=== PATIENT | female | born 1930 | race Caucasian/White ===

== ENCOUNTER 2019-12-05 20:06 | Emergency (ER) | payer MEDICARE, OTHER ==
[~2019-12-05] VITALS: Ht 162.6 cm; Wt 77.0 kg
[2019-12-05 20:36] LABS: BASO # 0.1 x10^3/uL (0.0-0.2); BASO % 1 % (0-3); EOS # 0.1 x10^3/uL (0.0-0.7); EOS % 1 % (0-3); HEMATOCRIT 39.3 % (36.0-47.0); HEMOGLOBIN 13.1 g/dL (12.0-15.5); LYMPH # 3.4 x10^3/uL (1.0-4.8); LYMPH % 34 % (24-48); MEAN CORPUSCULAR HEMOGLOBIN 30 pg (25-35); MEAN CORPUSCULAR HGB CONC 33 g/dL (31-37); MEAN CORPUSCULAR VOLUME 91 fL (79-100); MONO # 0.9 x10^3/uL (0.0-1.1); MONO % 9 % (0-9); NEUT # 5.5 x10^3uL (1.8-7.7); NEUT % 55 % (31-73); PLATELET COUNT 378 x10^3/uL (140-400); RED BLOOD COUNT 4.34 x10^6/uL (3.50-5.40); RED CELL DISTRIBUTION WIDTH 16.2 % (11.5-14.5); WHITE BLOOD COUNT 10.1 x10^3/uL (4.0-11.0)
[2019-12-05 20:45] LABS: CALCIUM 8.9 mg/dL (8.5-10.1); GFR 52.2; POTASSIUM 4.1 mmol/L (3.5-5.1)
[2019-12-05 20:51] LABS: ALBUMIN 3.1 g/dL (3.4-5.0); ALBUMIN/GLOBULIN RATIO 0.8 (1.0-1.7); TOTAL BILIRUBIN 0.2 mg/dL (0.2-1.0); TOTAL PROTEIN 7.1 g/dL (6.4-8.2)
--- NOTE | 2019-12-05 20:57 | RAD ---
INDICATION: Reason: fall / Spl. Instructions: / History: COMPARISON: None. TECHNIQUE: Axial CT images obtained through the head. One or more of the following individualized dose reduction techniques were utilized for this examination: 1. Automated exposure control; 2. Adjustment of the mA and/or kV according to patient size; 3. Use of iterative reconstruction technique. FINDINGS: Prominence of the ventricles and sulci which can be seen with age-related volume loss. Multifocal low density throughout the white matter. Within the right frontal region abutting the falx and inner table of the calvarium there is a high density structure identified measuring 12 x 10 mm. No midline shift. Suprasellar cistern is not effaced. IMPRESSION: * At the right frontal region just deep to the calvarium along the falx there is a high density extra-axial structure seen. Differential considerations include both an extra-axial mass such as meningioma with extra-axial hemorrhage also within the differential for this CT appearance. Would consider obtaining an MRI with and without contrast to further evaluate. * Scattered foci of low density within the white matter. Nonspecific but can be from chronic small vessel ischemic disease. * Prominence of ventricles and sulci which can be seen with age-related volume loss. Electronically signed by: Maxim Sullivan MD (12/05/2019 8:54 PM) [id number]
--- NOTE | 2019-12-05 21:29 | PHYS DOC ---
Past History Past Medical History: Dementia Adult General Chief Complaint Chief Complaint: LACERATION/AVULSION HPI HPI Patient is a 89 year old female who presents to the emergency department for evaluation of fall and head injury. The patient has history of dementia and does not provide any history regarding her injury. The patient was brought to the emergency department from [facility] after patient was found to have fallen. Patient had a noted laceration to the scalp by staff with bleeding controlled prior to arrival. No other obvious injuries or deformities. The patient is not reportedly on any blood thinner medication. Review of Systems Review of Systems Unable to answer any questions regarding review of systems due to dementia. Patient repeatedly cries for help. All other systems were reviewed and found to be within normal limits, except as documented in this note. Allergies Allergies Allergies Coded Allergies Type Severity Reaction Last Updated Verified Macrolide Antibiotics Allergy Unknown 12/05/19 Yes Penicillins Allergy Unknown 12/05/19 Yes aspirin Allergy Unknown 12/05/19 Yes Uncoded Allergies Type Severity Reaction Last Updated Verified ketolides Allergy Unknown 12/05/19 Physical Exam Physical Exam Constitutional: Well developed, well nourished, no acute distress, non-toxic appearance. [] HENT: Normocephalic, atraumatic, bilateral external ears normal, oropharynx moist, no oral exudates, nose normal. [] Eyes: PERRLA, EOMI, conjunctiva normal, no discharge. [] Neck: Normal range of motion, no tenderness, supple, no stridor. [] Cardiovascular:Heart rate regular rhythm, no murmur [] Lungs & Thorax: Bilateral breath sounds clear to auscultation [] Abdomen: Bowel sounds normal, soft, no tenderness, no masses, no pulsatile masses. [] Skin: Warm, dry, no erythema, no rash. [] Back: No tenderness, no CVA tenderness. [] Extremities: No tenderness, no cyanosis, no clubbing, ROM intact, no edema. [] Neurologic: Alert and oriented X 3, normal motor function, normal sensory function, no focal deficits noted. [] Psychologic: Affect normal, judgement normal, mood normal. [] Current Patient Data Lab Results Laboratory Tests Test 12/05/19 20:10 White Blood Count 10.1 x10^3/uL (4.0-11.0) Red Blood Count 4.34 x10^6/uL (3.50-5.40) Hemoglobin 13.1 g/dL (12.0-15.5) Hematocrit 39.3 % (36.0-47.0) Mean Corpuscular Volume 91 fL (79-100) Mean Corpuscular Hemoglobin 30 pg (25-35) Mean Corpuscular Hemoglobin Concent 33 g/dL (31-37) Red Cell Distribution Width 16.2 % (11.5-14.5) H Platelet Count 378 x10^3/uL (140-400) Neutrophils (%) (Auto) 55 % (31-73) Lymphocytes (%) (Auto) 34 % (24-48) Monocytes (%) (Auto) 9 % (0-9) Eosinophils (%) (Auto) 1 % (0-3) Basophils (%) (Auto) 1 % (0-3) Neutrophils # (Auto) 5.5 x10^3uL (1.8-7.7) Lymphocytes # (Auto) 3.4 x10^3/uL (1.0-4.8) Monocytes # (Auto) 0.9 x10^3/uL (0.0-1.1) Eosinophils # (Auto) 0.1 x10^3/uL (0.0-0.7) Basophils # (Auto) 0.1 x10^3/uL (0.0-0.2) Prothrombin Time 10.9 SEC (9.4-11.4) Prothrombin Time INR 1.1 (0.9-1.1) Sodium Level 138 mmol/L (136-145) Potassium Level 4.1 mmol/L (3.5-5.1) Chloride Level 101 mmol/L (98-107) Carbon Dioxide Level 27 mmol/L (21-32) Anion Gap 10 (6-14) Blood Urea Nitrogen 32 mg/dL (7-20) H Creatinine 1.0 mg/dL (0.6-1.0) Estimated GFR (Cockcroft-Gault) 52.2 BUN/Creatinine Ratio 32 (6-20) H Glucose Level 138 mg/dL (70-99) H Calcium Level 8.9 mg/dL (8.5-10.1) Total Bilirubin 0.2 mg/dL (0.2-1.0) Aspartate Amino Transferase (AST) 23 U/L (15-37) Alanine Aminotransferase (ALT) 24 U/L (14-59) Alkaline Phosphatase 64 U/L (46-116) Troponin I Quantitative 0.026 ng/mL (0-0.055) Total Protein 7.1 g/dL (6.4-8.2) Albumin 3.1 g/dL (3.4-5.0) L Albumin/Globulin Ratio 0.8 (1.0-1.7) L EKG EKG Interpreted by me: Heart rate 72, sinus rhythm, leftward axis, no acute ST elevations or depressions [] Radiology/Procedures Radiology/Procedures [address] [address] IMAGING REPORT Signed PATIENT: HÉCTOR RYAN ACCOUNT: [id number] : 1930 LOCATION: ER AGE: 89 SEX: F EXAM STATUS: PRE ER ORD. PHYSICIAN: LAYA HOOPER MD REASON: fall PROCEDURE: CT HEAD WO CONTRAST INDICATION: Reason: fall / Spl. Instructions: / History: COMPARISON: None. TECHNIQUE: Axial CT images obtained through the head. One or more of the following individualized dose reduction techniques were utilized for this examination: 1. Automated exposure control; 2. Adjustment of the mA and/or kV according to patient size; 3. Use of iterative reconstruction technique. FINDINGS: Prominence of the ventricles and sulci which can be seen with age-related volume loss. Multifocal low density throughout the white matter. Within the right frontal region abutting the falx and inner table of the calvarium there is a high density structure identified measuring 12 x 10 mm. No midline shift. Suprasellar cistern is not effaced. IMPRESSION: * At the right frontal region just deep to the calvarium along the falx there is a high density extra-axial structure seen. Differential considerations include both an extra-axial mass such as meningioma with extra-axial hemorrhage also within the differential for this CT appearance. Would consider obtaining an MRI with and without contrast to further evaluate. * Scattered foci of low density within the white matter. Nonspecific but can be from chronic small vessel ischemic disease. * Prominence of ventricles and sulci which can be seen with age-related volume loss. Electronically signed by: Maxim Fields MD (12/05/2019 8:54 PM) [id number] DICTATED AND SIGNED BY: MAXIM FIELDS MD DATE: 12/05/192053 CC: LAYA HOOPER MD ~ Indication: Scalp laceration Procedure: The patient was placed in the appropriate position. The area was then cleansed with high-pressure saline. The laceration was closed using skin stapl es. The wound area was then left uncovered. Total repaired wound length: 4 cm. Other Items: Total staple count: 7 The patient tolerated the procedure without difficulty. Complications: None.[] Course & Med Decision Making Course & Med Decision Making Pertinent Labs and Imaging studies reviewed. (See chart for details) Laceration was repaired as outlined in procedure note. CT imaging showed a ri ght extra-axial hyperdensity with differential including extra-axial hemorrhage versus meningioma. I consulted neurosurgery at [facility]. After reviewing the images, they stated that though the finding likely represents a meningioma, they do feel it appropriate that patient be transferred to a higher level of care for repeat CT imaging and available neurosurgery c onsult. I contacted the hospitalist, Dr. Rose, at [facility] and spoke with him regarding patient case. He agreed to accept patient for transfer. The patient was transferred to [facility] by ambulance. [] Dragon Disclaimer Dragon Disclaimer This electronic medical record was generated, in whole or in part, using a voice recognition dictation system. Departure Departure: Impression: Primary Impression: Closed head injury Additional Impressions: Abnormal head CT Dementia Scalp laceration Disposition: 02 XFER [facility] HOS[facility] Condition: GUARDED Justification of Admission: Justification of Admission: Justification of Admission Dx: N/A Problem Qualifiers Primary Impression: Closed head injury Encounter type: initial encounter Qualified Codes: S09.90XA - Unspecified injury of head, initial encounter Additional Impressions: Dementia Dementia type: unspecified type Dementia behavioral disturbance: without behavioral disturbance Qualified Codes: F03.90 - Unspecified dementia without behavioral disturbance Scalp laceration Encounter type: initial encounter Qualified Codes: S01.01XA - Laceration without foreign body of scalp, initial encounter LAYA HOOPER MD Dec 05, 2019 21:29
--- NOTE | 2019-12-05 21:47 | EKG ---
[address] [address] Test Date: 2019-12-05 Test Time: 20:19:36 Pat Name: HÉCTOR RYAN Department: Room: Gender: F Line Ordering Clinician: LOVE : 1930 Requested By: LAYA HOOPER Order Number: [id number] Reading MD: Chandana Alvarenga MD Measurements Intervals Ashley Rate: 72 P: 60 OH: 162 QRS: -12 QRSD: 116 T: 16 QT: 372 QTc: 409 Interpretive Statements SINUS RHYTHM Electronically Signed On 12-06-2019 12:32:38 CDT by Chandana Alvarenga MD
[2019-12-06 00:15] VITALS: BP 161/64
== END 2019-12-06 00:41 | disposition short-term general hospital (02) ==
LOC: ER 20:06
DX: S01.01XA Laceration without foreign body of scalp, initial encounter (principal); F03.90 Unspecified dementia, unspecified severity, without behavioral disturbance, psychotic disturbance, mood disturbance, and anxiety; R93.0 Abnormal findings on diagnostic imaging of skull and head, not elsewhere classified; Z88.0 Allergy status to penicillin; Z88.6 Allergy status to analgesic agent; Z88.8 Allergy status to other drugs, medicaments and biological substances; W18.39XA Other fall on same level, initial encounter; Y93.89 Activity, other specified; Y92.89 Other specified places as the place of occurrence of the external cause; Y99.8 Other external cause status
CPT/HCPCS: 12002; 36415; 70450; 80053; 84484; 85025; 85610; 93005; 99285-25

== ENCOUNTER 2020-05-03 12:54 | Inpatient (IN) | payer MEDICARE, OTHER ==
[~2020-05-03] VITALS: Ht 162.6 cm; Wt 68.8 kg
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
--- NOTE | 2020-05-03 13:23 | RAD ---
INDICATION: Reason: ams / Spl. Instructions: / History: COMPARISON: None. FINDINGS: Single view of chest obtained. Severe degenerative changes of the bilateral shoulders with dysmorphic changes of the humeral heads. Degenerative changes of the spine. Enlarged cardiomediastinal silhouette with calcific atherosclerosis. Moderate right-sided pleural effusion with suspected small left-sided pleural effusion with adjacent airspace consolidation. Air-filled prominent stomach bubble IMPRESSION: * Suspected right greater than left pleural effusion with adjacent airspace consolidation which can be seen with atelectasis or infiltrate. * Enlarged cardiomediastinal silhouette. Electronically signed by: Maxim Sullivan MD (05/03/2020 1:21 PM) [id number]
[2020-05-03 13:35] LABS: BASO % 0 % (0-3); EOS % 0 % (0-3); HEMATOCRIT 39.7 % (36.0-47.0); HEMOGLOBIN 12.7 g/dL (12.0-15.5); LYMPH # 1.4 x10^3/uL (1.0-4.8); LYMPH % 24 % (24-48); MEAN CORPUSCULAR HEMOGLOBIN 28 pg (25-35); MEAN CORPUSCULAR HGB CONC 32 g/dL (31-37); MEAN CORPUSCULAR VOLUME 89 fL (79-100); MONO # 0.2 x10^3/uL (0.0-1.1); MONO % 3 % (0-9); NEUT # 4.4 x10^3uL (1.8-7.7); NEUT % 72 % (31-73); PLATELET COUNT 184 x10^3/uL (140-400); RED BLOOD COUNT 4.49 x10^6/uL (3.50-5.40); RED CELL DISTRIBUTION WIDTH 17.8 % (11.5-14.5)
--- NOTE | 2020-05-03 13:51 | EKG ---
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
--- NOTE | 2020-05-03 13:54 | RAD ---
CT HEAD AND C-SPINE WO History: Reason: ams / Spl. Instructions: / History: Comparison: CT head 12/05/2019 Technique: Noncontrast CT of the head and cervical spine. Findings: CT HEAD: There is no evidence for intracranial mass or hemorrhage. There is no hydrocephalus or midline shift. No abnormal extra-axial fluid collections are present. There is redemonstration of a high density 1.2 cm mass along the frontal/falcine dura, most consisten t with meningioma. No adjacent edema or significant mass effect. Delaney/white matter differentiation is preserved. The visualized paranasal sinuses and mastoid air cells are clear. The skull and scalp are within normal limits. CT CERVICAL SPINE: There is no evidence for fracture in the cervical spine. Alignment is normal. Multilevel degenerative disc and facet disease. No destructive osseous lesions are seen. Enlarged right thyroid lobe containing multiple nodules including elongated 1.7 cm hypodense nodule. Large right pleural effusion. Impression: 1. No acute intracranial findings. 2. Redemonstrated 1.2 cm frontal/parasagittal extra-axial mass most consistent with meningioma. 3. Degenerative changes without acute osseous abnormality in the cervical spine. 4. Enlarged right thyroid lobe containing multiple nodules with one measuring at least 1.7 cm. Recom mend routine ultrasound for further evaluation. 5. Large right pleural effusion. ------- Exposure: One or more of the following individualized dose reduction techniques were utilized for thi s examination: 1. Automated exposure control 2. Adjustment of the mA and/or kV according to patient size 3. Use of iterative reconstruction technique. Electronically signed by: Devante Euceda MD (05/03/2020 1:52 PM) [facility]
[2020-05-03 13:58] LABS: MAGNESIUM 2.2 mg/dL (1.8-2.4)
[2020-05-03] MEDS ORDERED: CLINDAMYCIN 600MG PREMIX 50 ML IV ONE (14:00)
--- NOTE | 2020-05-03 14:13 | RAD ---
CT THORAX WO History: Reason: cough, ams / Spl. Instructions: / History: Comparison: X-ray 05/03/2020 Technique: Noncontrast CT of the chest. Findings: Assessment is limited by lack of IV contrast. Aorta and Great Vessels: No aneurysm of the aortic arch or thoracic aorta is seen. Heavy atherosclero tic calcification. Thyroid: Enlarged right thyroid lobe with nodules measuring up to 1.7 cm. Mediastinum and dara: No mediastinal masses or adenopathy is seen. Esophagus: The visualized esophagus is normal. Heart: The heart is normal in size. There is no pericardial effusion. Heavy coronary artery calcifica tion. Trachea: No endobronchial masses. Lungs: Mild right upper lobe consolidation/atelectasis, moderate right middle lobe consolidation/atel ectasis in high-grade consolidation/atelectasis of the right lower lobe in the setting of large right pleural effusion. Left lower lobe patchy opacities and mild consolidation.. Calcified granulomas. Pleural Space: Large right pleural effusion, trace left pleural effusion. No pneumothorax. Upper Abdomen: No significant findings. Osseous Structures and Soft Tissues: Severe degenerative changes of the bilateral shoulders with join t effusions. Acute fracture right sixth, seventh and eighth ribs posterior laterally. The seventh rib is also fractured posterior medially. Decreased osseous mineralization in the spine with advanced mu ltilevel degenerative changes. Impression: 1. Acute fractures of the right sixth, seventh and eighth ribs with large right pleural effusion and adjacent atelectasis/consolidation. Superimposed infection cannot be excluded. 2. Trace left pleural effusion and lower lobe airspace disease. 3. Enlarged right thyroid gland with at least 1.7 cm nodule. Recommend routine outpatient ultrasound for further evaluation. ------ Exposure: One or more of the following individualized dose reduction techniques were utilized for thi s examination: 1. Automated exposure control 2. Adjustment of the mA and/or kV according to patient size 3. Use of iterative reconstruction technique. Electronically signed by: Devante Euceda MD (05/03/2020 2:11 PM) [facility]
[2020-05-03 14:24] LABS: CALCIUM 9.4 mg/dL (8.5-10.1); GFR 52.2; POTASSIUM 4.7 mmol/L (3.5-5.1)
[2020-05-03 14:26] LABS: ACETAMIN < 2.0 mcg/mL (10-30); ALBUMIN 2.6 g/dL (3.4-5.0); ALBUMIN/GLOBULIN RATIO 0.6 (1.0-1.7); ETHANOL < 10 mg/dL (0-10); SALIC < 2.8 mg/dL (2.8-20.0); TOTAL BILIRUBIN 0.2 mg/dL (0.2-1.0); TOTAL PROTEIN 6.7 g/dL (6.4-8.2)
[2020-05-03] MEDS ORDERED: cefTRIAXone SODIUM 1 GM VIAL ONE (14:41)
[2020-05-03] MEDS ORDERED: IV NORMAL SALINE 50ML 50 ML ONE (14:41)
[2020-05-03] MEDS ORDERED: IOHEXOL 300 MG/ML 75 ML VIAL. IV ONE (14:45)
--- NOTE | 2020-05-03 15:32 | RAD ---
CT ABDOMEN+PELVIS W History: Reason: fall? / Spl. Instructions: 60 ML OMNI 300 / History: Comparison: CT chest 05/03/2020 Technique: CT of the abdomen and pelvis with intravenous contrast. Findings: Redemonstrated large right pleural effusion adjacent to fractures of the posterior lateral sixth stephen nth and eighth ribs. Consolidation/atelectasis at the right lower lobe. Left basilar consolidation/at electasis. Cardiomegaly and coronary artery calcification. There is no free intra-abdominal air. Trace free fluid in the pelvic cul-de-sac. The liver, gallbladder, biliary ducts, adrenal glands and spleen are unremarkable. Mild pancreatic at rophy. Hypodensity and cortical thinning at the upper pole of the right kidney may represent focal at rophy/scarring. There is an intermediate density round exophytic 1.7 cm mass at the upper pole left k idney (Hounsfield unit 49). Stomach is unremarkable. Normal small bowel. Extensive sigmoid diverticulosis with mild wall thickeni ng and adjacent inflammatory changes. Mild rectal thickening and round density within the rectum may represent a polyp or diverticulum. Status post hysterectomy. Right adnexa 6.3 x 5.4 cm cyst. No abdominal or pelvic adenopathy. Moderate aortoiliac atherosclerotic calcification without aneurysm. Diffuse soft tissue anasarca. Acute comminuted fracture of the right greater trochanter with surround ing edema diffusely decreased osseous mineralization. Advanced multilevel degenerative changes in the spine. Impression: 1. Acute comminuted fracture right greater trochanter. 2. Extensive sigmoid diverticulosis with mild wall thickening and pericolonic fat stranding concerni ng for diverticulitis. 3. Left renal upper pole 1.7 cm intermediate density exophytic mass. This may represent a cyst with proteinaceous or hemorrhagic content. Ultrasound is recommended to exclude solid neoplasm. 4. Right adnexal cyst measuring 6.3 cm. Pelvic ultrasound is recommended for further evaluation. 5. Right rib fractures, large right pleural effusion and atelectasis better appreciated on compariso n CT chest. ------ Exposure: One or more of the following individualized dose reduction techniques were utilized for thi s examination: 1. Automated exposure control 2. Adjustment of the mA and/or kV according to patient size 3. Use of iterative reconstruction technique. Electronically signed by: Devante Euceda MD (05/03/2020 3:30 PM) [facility]
[2020-05-03] MEDS ORDERED: FUROSEMIDE 100 MG/10 ML VIAL IVP ONE (15:45)
--- NOTE | 2020-05-03 17:01 | RAD ---
Bilateral lower extremity venous duplex Doppler ultrasound HISTORY: Bilateral leg swelling and edema, history of DVT. FINDINGS: No DVT evident by grayscale sonography with compressibility, patent color Doppler blood adwoa w and augmentation of blood flow of the bilateral common femoral veins, profunda femoral veins and encinas perficial femoral veins and of the right popliteal vein. No DVT evident with patent color Doppler blo od flow the bilateral posterior tibial and peroneal veins in the calves. Due to patient being unable to move the left leg the left popliteal fossa could not be accessed which does not allow evaluation o f the left popliteal vein for thrombosis. A ovoid mixed echogenicity focus measuring 4.1 x 1.2 x 3.2 cm at the visualized left popliteal fossa is documented which is indeterminate. IMPRESSION: Negative legs for DVT. The left popliteal fossa and popliteal vein cannot be evaluated not allowing a ssessment for DVT at this segment. See above. Electronically signed by: Chicho Yanes MD (05/03/2020 4:58 PM) [facility]
[2020-05-03] MEDS ORDERED: HYDROmorphone PF 1 MG/ML DISP.SYRIN IVP ONE (17:30)
[2020-05-03 18:41] LABS: BACTERIA,URINE MOD /HPF (0-FEW); BILIRUBIN,URINE NEG (NEG); CLARITY,URINE CLOUDY; COLOR,URINE YELLOW; GLUCOSE,URINE NEG (NEG); NITRITE,URINE POS (NEG); SQUAMOUS EPITHELIAL CELL,UR FEW /LPF; UROBILINOGEN,URINE 0.2 mg/dL (0.2 mg/dL); WBC,URINE 20-40 /HPF (0-4)
[2020-05-03 18:47] LABS: AMPHETAMINE/METHAMPHETAMINE NEG (NEG); BARBITURATES NEG (NEG); BENZODIAZEPINES NEG (NEG); CANNABINOIDS NEG (NEG); COCAINE NEG (NEG); METHADONE NEG (NEG); OPIATES NEG (NEG); PHENCYCLIDINE NEG (NEG)
[2020-05-03 19:48] VITALS: BP 159/74
[2020-05-03 20:00] VITALS: BP 139/64
[2020-05-03 22:00] VITALS: BP 120/51
[2020-05-03] MEDS ORDERED: ALBU2.5V8 IH (23:12)
[2020-05-03] MEDS ORDERED: DOCU100T5 PO (23:12)
[2020-05-03] MEDS ORDERED: [UNRECOGNIZED DRUG - CODE] PO (23:12)
[2020-05-03] MEDS ORDERED: MULT-445 PO (23:12)
[2020-05-03] MEDS ORDERED: ONDA4TAB7 PO (23:12)
[2020-05-03] MEDS ORDERED: PHEN26CR2 RC (23:12)
[2020-05-03] MEDS ORDERED: MAGN400O7 PO (23:12)
[2020-05-03] MEDS ORDERED: LISI20TA18 PO (23:12)
[2020-05-03] MEDS ORDERED: MELA5TAB20 PO (23:12)
[2020-05-03] MEDS ORDERED: ACET-1874 PO (23:12)
[2020-05-03] MEDS ORDERED: LACT100C2 PO (23:12)
[2020-05-03] MEDS ORDERED: CHOL500050 PO (23:12)
[2020-05-03] MEDS ORDERED: CALC11776 PO (23:12)
[2020-05-04] VITALS (17 sets, daily range): BP systolic 77–123; BP diastolic 35–75
[2020-05-04] MEDS ORDERED: ONDANSETRON PF 4 MG/2 ML VIAL. IVP PRN (01:15)
[2020-05-04 07:07] LABS: BASO % 1 % (0-3); EOS % 1 % (0-3); HEMATOCRIT 37.2 % (36.0-47.0); HEMOGLOBIN 12.1 g/dL (12.0-15.5); LYMPH # 1.2 x10^3/uL (1.0-4.8); LYMPH % 21 % (24-48); MEAN CORPUSCULAR HEMOGLOBIN 29 pg (25-35); MEAN CORPUSCULAR HGB CONC 32 g/dL (31-37); MEAN CORPUSCULAR VOLUME 88 fL (79-100); MONO # 0.3 x10^3/uL (0.0-1.1); MONO % 6 % (0-9); NEUT % 72 % (31-73); PLATELET COUNT 171 x10^3/uL (140-400); RED BLOOD COUNT 4.24 x10^6/uL (3.50-5.40); WHITE BLOOD COUNT 5.6 x10^3/uL (4.0-11.0)
[2020-05-04 07:14] LABS: ALBUMIN 2.4 g/dL (3.4-5.0); ALBUMIN/GLOBULIN RATIO 0.6 (1.0-1.7); CALCIUM 9.2 mg/dL (8.5-10.1); CREATININE 0.9 mg/dL (0.6-1.0); POTASSIUM 4.2 mmol/L (3.5-5.1); TOTAL BILIRUBIN 0.2 mg/dL (0.2-1.0); TOTAL PROTEIN 6.2 g/dL (6.4-8.2)
[2020-05-04] MEDS ORDERED: MAGNESIUM HYDROXIDE 2,400 MG/30 ML ORAL.SUSP. PO PRN (07:45)
[2020-05-04] MEDS ORDERED: ALBUTEROL SULFATE 2.5 MG/3 ML NEBU. IH PRN (07:45)
[2020-05-04] MEDS ORDERED: ONDANSETRON ODT 4 MG TAB.RAPDIS PO PRN (08:15)
[2020-05-04] MEDS ORDERED: ACETAMINOPHEN 325 MG TABLET PO PRN (08:15)
[2020-05-04] MEDS ORDERED: MULTIVITAMIN with MINERAL TABLET. PO SCH (09:00)
[2020-05-04] MEDS ORDERED: CALCIUM CARBONATE 500 MG TAB.CHEW PO SCH (09:00)
[2020-05-04] MEDS ORDERED: DOCUSATE SODIUM 100 MG CAPSULE PO SCH (09:00)
[2020-05-04] MEDS ORDERED: CHOLECALCIFEROL (VITAMIN D3) 50,000 UNIT CAPSULE PO SCH (09:00)
[2020-05-04] MEDS ORDERED: LACTOBACILLUS RHAMNOSUS GG 1 CAPSULE. PO SCH (09:00)
[2020-05-04] MEDS ORDERED: LISINOPRIL 20 MG TABLET PO SCH (09:00)
[2020-05-04] MEDS ORDERED: [UNRECOGNIZED DRUG - OTHER] PO SCH (09:00)
[2020-05-04] MEDS ORDERED: LIDOCAINE (700MG/PATCH) PATCH. TD SCH (09:00)
[2020-05-04] MEDS ORDERED: PHENYLEPH/MINERAL OIL/PETROLAT RECTAL OINTMENT TUBE. RC PRN (14:15)
[2020-05-04] MEDS ORDERED: POTASSIUM CL 20MEQ D5-0.2%NACL 1,000 ML IV SCH (15:15)
--- NOTE | 2020-05-04 15:37 | SSS ---
ADMIT DATE: HISTORY OF PRESENT ILLNESS: The patient is an 89-year-old female patient, a resident at [facility], who apparently was on hospice there and who was brought yesterday to the Emergency Room by EMS for altered mental status. She was brought from [facility] with concern for altered mental status for the past hour. EMS reports, the patient is normally ambulatory and active and is now minimally responsive and appears too weak to get out of bed. Food particles were on the patient's shirt and the patient has an audible productive cough. EMS was told by nursing facility that the patient is a full code, but is on hospice. Nurse validation manager called and confirmed this with the facility. Her medication list reviewed; the patient is on no anticoagulation. Apparently, the patient has also history of brain tumors. She was extensively investigated in the Emergency Room, has had lab work and imaging studies. Her lab work including her CBC and CMP were essentially unremarkable. Her blood gases also showed that she was venous and shows hypoxia. Urinalysis showed that she has 20-40 wbc's, moderate amount of leukocyte esterase and positive nitrite. Her toxic screen was essentially negative. She was extensively imaged. Her chest x-ray showed suspected right greater than left pleural effusion with adjacent airspace consolidation. This can be seen with atelectasis and infiltrate. She has enlarged cardiomediastinal silhouette. Her CT scan of the head and cervical spine showed no acute intracranial findings. She has redemonstrated 1.2 cm frontal parasagittal extraaxial mass, most consistent with meningioma. She has degenerative changes without acute osseous abnormality in the cervical spine, enlarged right thyroid lobe containing multiple nodules with one measuring up to 1.7 cm. Recommend routine ultrasound for further evaluation. She has large right-sided pleural effusion. Her CT scan of the chest showed acute fracture of the right 6th, 7th and 8th ribs with large right right-sided pleural effusion, adjacent atelectasis and consolidation, superimposed infection cannot be excluded. She has trace left pleural effusion and lower lobe airspace disease, enlarged right thyroid gland. CT scan of the abdomen and pelvis showed the patient has acute comminuted fracture of the right greater trochanteric area, has extensive sigmoid diverticulosis with mild wall thickening and pericolonic fat stranding concerning for diverticulitis. She has left renal upper pole 1.7 cm indeterminate density exophytic mass. This may represent a cyst with proteinaceous or hemorrhagic content. Ultrasound is recommended to exclude solid neoplasm. Right adnexa and cyst measuring 6.3 cm. Pelvic ultrasound is recommended for further evaluation. She has right rib fractures, large right-sided pleural effusion. Atelectasis is better appreciated in comparison CT scan. She has had bilateral lower extremity Doppler ultrasound, which shows negative for DVT. The left popliteal fossa and popliteal veins cannot be evaluated not allowing assessment for DVT at this segment. The patient was basically admitted and started on IV pain medication. I was under the impression that the patient will go back to hospice, but her son called from [facility] and he wanted her to be transferred to [facility] to be evaluated by the orthopedic surgeon to see if her right trochanteric fracture can be fixed surgically. PAST MEDICAL HISTORY: Significant for the fact she has paroxysmal atrial fibrillation, cerebral infarction, essential hypertension, protein-calorie malnutrition, dementia with behavioral disturbances, recurrent falls, insomnia, gastroesophageal reflux disease, generalized osteoarthritis, and age-related osteoporosis. She was COVID-19 positive on 02/13/2020. ALLERGIES: SHE IS ALLERGIC TO MACROLIDE ANTIBIOTIC, PENICILLIN, ASPIRIN, AND ERYTHROMYCIN. MEDICATIONS: She is currently on following medications: She is on albuterol sulfate 8.5 mg inhaler 2 puffs every 4-6 hours, lisinopril 20 mg once a day extended release, Tylenol 650 mg 3 times a day, Ensure [place] liquid 3 times a day after meals. She is on calcium carbonate, Tums Ultra Strength 940 mg daily. She is on lactobacillus acidophilus twice a day, docusate sodium 100 mg daily, magnesium hydroxide for milk of magnesia 30 mL p.o. daily p.r.n. for constipation, ondansetron 4 mg every 4 hours, Preparation-H cream apply topically as needed, ergocalciferol vitamin D 1250 mcg daily, multivitamin 1 tablet once a day, and melatonin 5 mg p.o. at bedtime. REVIEW OF SYSTEMS: Unobtainable. PHYSICAL EXAMINATION: GENERAL: On arrival to the Emergency Room, when I saw her she was resting slightly propped up in bed, in no apparent distress, slightly pale, but no jaundice or cyanosis. No lymphadenopathy, no thyromegaly. No jugular venous distension. No limb edema. VITAL SIGNS: Her heart rate was 61, blood pressure was 113/60, temperature was 96.7, respiratory rate 20, and oxygen saturation was 94% on 3 liters of oxygen. HEAD, EYES, EARS, NOSE AND THROAT: Normocephalic, atraumatic. NECK: Supple. HEART: Showed normal first and second heart sounds. No gallop, rub or murmur. CHEST: Clear to auscultation. No crepitation or rhonchi. ABDOMEN: Distended, soft, nontender. NEUROLOGIC: She was lethargic, but arousable. All her cranial nerves are intact. EXTREMITIES: She moves upper extremities without difficulty. LABORATORY DATA: Her lab work this morning showed a white cell count 5600, hemoglobin 12, hematocrit 37, MCV 88 and platelet count of 171,000. Her chemistry showed a serum sodium 147, potassium 4.2, chloride 110, bicarbonate 29, anion gap of 8, BUN 41, creatinine 0.9, estimated GFR was 59 mL per minute. Her glucose 160, calcium was 9.2. Total bilirubin, AST, ALT, alkaline phosphatase were normal. Total protein 6.2, albumin was 2.4. Urinalysis showed the urine was yellow, cloudy with a pH of 5.5, specific gravity 1.010. The urine was negative for protein, glucose, ketones, small amount of blood, positive for nitrite, moderate amount of leukocyte esterase. There is 3-5 rbc's, 20-40 wbc's, and moderate amount of bacteria. Her toxic screen was negative. The patient was extensively investigated and there is no evidence of any intracranial pathology. She does have a meningioma. The CT scan of the abdomen and pelvis showed acute comminuted fracture of the right greater trochanter, extensive sigmoid diverticulosis with possible diverticulitis. PLAN: To continue with IV. As SHE IS ALLERGIC TO PENICILLIN, I will start her on meropenem and her family requested transfer to [facility], we will transfer her there and consult the orthopedic surgeon. MAURA COLINDRES MD DR: MORENITA/parish JOB#: [id number] / [id number]
[2020-05-04] MEDS ORDERED: MEROPENEM 500 MG in IV NORMAL SALINE 50ML 50 ML IV SCH (16:00)
[2020-05-04] MEDS ORDERED: MELATONIN 3 MG TABLET PO SCH (21:00)
== END 2020-05-04 19:46 | disposition short-term general hospital (02) | DRG 177 ==
LOC: EDBD 12:54 → ER 12:54 → ICU 16:51
PROVIDERS: ADMIT Internal Medicine; ATTEND Internal Medicine
DX: J69.0 Pneumonitis due to inhalation of food and vomit (principal); S72.111A Displaced fracture of greater trochanter of right femur, initial encounter for closed fracture; E43 Unspecified severe protein-calorie malnutrition; S22.41XA Multiple fractures of ribs, right side, initial encounter for closed fracture; F03.91 Unspecified dementia, unspecified severity, with behavioral disturbance; J90 Pleural effusion, not elsewhere classified; J98.11 Atelectasis; N39.0 Urinary tract infection, site not specified; I10 Essential (primary) hypertension; I48.0 Paroxysmal atrial fibrillation; K57.30 Diverticulosis of large intestine without perforation or abscess without bleeding; M15.9 Polyosteoarthritis, unspecified; M81.0 Age-related osteoporosis without current pathological fracture; R09.02 Hypoxemia; Z86.718 Personal history of other venous thrombosis and embolism; Z51.5 Encounter for palliative care; Z86.73 Personal history of transient ischemic attack (TIA), and cerebral infarction without residual deficits; K21.9 Gastro-esophageal reflux disease without esophagitis; Z88.0 Allergy status to penicillin; Z88.8 Allergy status to other drugs, medicaments and biological substances; W18.39XA Other fall on same level, initial encounter; Y93.89 Activity, other specified; Y92.89 Other specified places as the place of occurrence of the external cause; Y99.8 Other external cause status; Z68.26 Body mass index [BMI] 26.0-26.9, adult; D49.6 Neoplasm of unspecified behavior of brain; Z86.16 Personal history of COVID-19
CPT/HCPCS: 36415; 70450; 71045; 71250; 72125; 74177; 80053; 80307; 80329; 81001; 82010; 82550; 82803; 83605; 83690; 83735; 83880; 84484; 85025; 87040; 87086; 93005; 93970; 96365; 96368; G0480; J0696; J1170; J2020; J2185; J3490; Q9967; 99285-25